=== PATIENT | female | born 1945 | race Caucasian/White ===

== ENCOUNTER 2017-09-12 13:16 | Emergency (ER) | payer MEDICARE, OTHER, SELFPAY ==
[2017-09-12 13:25] VITALS: BP 164/74; PULSE 72; RESP 18; TEMP 36.8; O2SAT 98; BMI 28.0
--- NOTE | 2017-09-12 13:27 | ED_ITS ---
HPI - Extremity Injury (Lower) <SHINE Mcintyre - Last Filed: 09/12/17 21:47> General Chief Complaint: Extremity Injury, Lower Stated Complaint: 'BROKE A BONE IN FOOT' Time Seen by Provider: 09/12/17 13:27 History of Present Illness HPI Narrative: 71-year-old female here for complaint of pain into her left foot and left knee status post ground level fall just prior to arrival. She reports that she stepped on a pine cone the rolled out from underneath her causing her to fall on to the left knee she reports pain into the lateral side of the left foot. She reports pain into the anterior portion of the left knee. She reports decreased ability to bear weight on the left foot. She denies any other injuries or concerns. Worse pain with motion of the left foot. Decreased pain if not moving or bearing weight MD complaint: foot injury Related Data Home Medications Medication Instructions Recorded Confirmed cholecalciferol (vitamin D3) 1,000 unit PO QDAY #0 08/26/12 09/12/17 [Vitamin D3] magnesium 200 mg PO DAILY #0 06/13/16 09/12/17 melatonin 1 mg PO BEDTIME #0 06/13/16 09/12/17 celecoxib [Celebrex] 200 mg PO [facility] [place] 06/17/17 09/12/17 coenzyme Q10 [Co Q-10] 100 mg PO DAILY #0 06/17/17 09/12/17 losartan 25 mg PO QPM 09/12/17 09/12/17 losartan 50 mg PO QAM 09/12/17 09/12/17 thyroid (pork) [Nature-Throid] 0.5 tab PO QPM 09/12/17 09/12/17 zolpidem [Ambien] 5 - 10 mg PO BEDTIME PRN 09/12/17 09/12/17 Previous Rx's Medication Instructions Recorded [Shingrix] 0.5 ml IM SEE INSTRUCTIONS #2 hemalatha 04/24/17 hydrocodone-homatropine 5 mg-1.5 5 ml PO Q6H PRN #175 ml 09/02/17 mg/5 mL syrup Allergies Allergy/AdvReac Type Severity Reaction Status Date / Time niacin [NIACIN] Allergy Intermediate VOMITTING Verified 09/12/17 13:34 lien Allergy Mild HIVES Verified 09/12/17 13:34 hydrocodone Allergy Unknown VOMITING Verified 09/12/17 13:34 Review of Systems <SHINE Mcintyre - Last Filed: 09/12/17 21:47> Constitutional Denies chills, Denies fever(s), Denies lethargy and Denies weakness Eyes Denies change in vision, Denies eye discharge, Denies irritation and Denies loss of vision ENT Ears, Nose, Mouth, and Throat: Denies change in voice, Denies neck pain and Denies sore throat Cardiovascular Denies chest pain, Denies irregular heart rhythm, Denies lightheadedness, Denies palpitations, Denies dyspnea, Denies dyspnea on exertion and Denies orthopnea Respiratory Denies cough, Denies dyspnea, Denies dyspnea on exertion and Denies wheezing Gastrointestinal Gastrointestinal: Denies abdominal pain, Denies change in bowel habits, Denies diarrhea, Denies nausea and Denies vomiting Genitourinary Denies hematuria, Denies flank pain, Denies urinary incontinence and Denies urinary urgency Musculoskeletal Denies neck pain Comments: Left foot and left knee pain Integumentary/Breasts Denies pruritus, Denies erythema, Denies rash and Denies wounds Neurologic Denies confusion, Denies loss of vision and Denies weakness Psychiatric Denies anxiety, Denies confusion, Denies depression, Denies homicidal ideation and Denies suicidal ideation Endocrine Denies palpitations Allergic/Immunologic Denies wheezing Exam <SHINE Mcintyre - Last Filed: 09/12/17 21:47> Initial Vital Signs Initial Vital Signs: Vital Signs Temperature 98.2 F 09/12/17 13:25 Pulse Rate 72 09/12/17 13:25 Respiratory Rate 18 09/12/17 13:25 Blood Pressure 164/74 H 09/12/17 13:25 Pulse Oximetry 98 09/12/17 13:25 Const General: cooperative and well developed Nutritional Appearance: well nourished Orientation: alert, awake, oriented x3 and not confused [facility] Mouth: oral mucosae normal and moist mucous membranes Eyes Eyelids: eyelids normal Conjunctivae: conjunctivae normal Sclera: sclerae normal Pupils: PERRL EOM: EOM intact bilaterally Resp Effort & Inspection: normal respiratory effort, able to speak in complete sentences, no respiratory distress and no use of accessory muscles Auscultation: clear to auscultation bilaterally, no rales, no rhonchi and no wheezes Cardio Rate: regular rate Rhythm: regular rhythm Heart Sounds: no click, no gallops, murmur systolic and no rubs Pulses: normal peripheral pulses Skin General: no rashes or lesions noted, No jaundice and No petechiae Extrem Other: Left foot with swelling into the lateral portion of the left foot. Distal sensation is intact. Distal range of motion is intact. Distal pulses are intact. No open lesions. Left knee with mild abrasion to the anterior portion of the knee. No signs of trauma. No ecchymosis. Negative anterior- posterior drawer sign <Charlie Nguyen DO - Last Filed: 09/13/17 07:15> Initial Vital Signs Initial Vital Signs: Vital Signs Temperature 98.2 F 09/12/17 13:25 Pulse Rate 72 09/12/17 13:25 Respiratory Rate 18 09/12/17 13:25 Blood Pressure 164/74 H 09/12/17 13:25 Pulse Oximetry 98 09/12/17 13:25 Course <SHINE Mcintyre - Last Filed: 09/12/17 21:47> Orders Ordered: Discontinued Medications Ibuprofen (Advil) 400 mg PO NOW ONE Stop: 09/12/17 14:10 Last Admin: 09/12/17 15:27 Dose: Vital Signs - 8 hr 09/12/17 15:20 Pulse Rate 71 Respiratory Rate 18 Blood Pressure 150/64 H Pulse Oximetry 99 <Charlie Nguyen DO - Last Filed: 09/13/17 07:15> Orders Ordered: Discontinued Medications Ibuprofen (Advil) 400 mg PO NOW ONE Stop: 09/12/17 14:10 Last Admin: 09/12/17 15:27 Dose: Vital Signs - 8 hr 09/12/17 15:20 Pulse Rate 71 Respiratory Rate 18 Blood Pressure 150/64 H Pulse Oximetry 99 MDM - Extremity Injury (Lower) <SHINE Mcintyre - Last Filed: 09/12/17 21:47> Imaging Data Left foot: Radiologist's impression: PROCEDURE: XR FOOT LT MIN 3V INDICATIONS: Ground level fall with pain to left knee and foot TECHNIQUE: 3 views of the foot were acquired. COMPARISON: None. FINDINGS: Bones: An acute, nondisplaced fracture is present through the base of the fifth metatarsal. Advanced degenerative joint disease at the first MTPJ. Calcification within the Achilles tendon just proximal to its insertion. Plantar bone spur posterior calcaneus. Soft tissues: No tibiotalar joint effusion. Achilles tendon appears normal. IMPRESSION: 1. Acute fracture base of the fifth metatarsal. 2. Advanced joint degeneration first metatarsal phalangeal joint with prominent hypertrophic changes. 3. Plantar spur os calcis. Dictated by: Colin Montemayor M.D. on 09/12/2017 at 14:14 Approved by: Colin Montemayor M.D. on 09/12/2017 at 14:16 Left knee : Radiologist's impression: PROCEDURE: XR KNEE LT 3V INDICATIONS: Ground level fall with pain to left foot and left knee TECHNIQUE: 3 views of the knee were acquired. COMPARISON: None. FINDINGS: Bones: No fractures or dislocations. No suspicious bony lesions. There are small marginal spurs over the posterior patella. Soft tissues: No joint effusion. No suspicious soft tissue calcifications. IMPRESSION: No fracture or joint effusion. Mild degenerative joint disease. Dictated by: Colin Montemayor M.D. on 09/12/2017 at 14:16 Approved by: Colin Montemayor M.D. on 09/12/2017 at 14:17 [facility] Narrative Medical decision making narrative: X-ray of the left knee was obtained and was negative for any acute findings. Ft x-ray shows nondisplaced fracture to the shaft of the 5th metatarsal. She is placed in a posterior splint for comfort and support. Crutches for nonweightbearing. [id number] Tylenol Motrin as needed for any discomfort. Ice and elevation help with swelling. She is referred Orthopedics. Patient call Orthopedics schedule follow-up appointment next week. For any worsening symptoms return to the emergency room. Discharge Plan Departure Patient Disposition: Home, Self-Care Clinical Impression: Foot fracture, left Discharge Date/Time: 09/12/17 15:00 Interventions: ED Discharge Assessment Last Done: 09/12/17 15:20 Instructions: DI for Foot Fracture Activity Restrictions/Additional Instructions: X-ray of the left knee was obtained and was negative for any acute findings. Foot x-ray shows fracture to the shaft of the 5th metatarsal. You have been placed in a posterior splint for comfort and support and crutches for nonweightbearing use as directed. [id number] Tylenol Motrin as needed for any discomfort. Ice and elevation help with swelling. You are referred to Orthopedics. Call Orthopedics to schedule follow-up appointment next week. For any worsening symptoms return to the emergency room. Prescriptions: No Action cholecalciferol (vitamin D3) [Vitamin D3] 2,000 UNIT capsule 1,000 unit PO QDAY Qty: 0 RF: 0 magnesium 200 MG tablet 200 mg PO DAILY Qty: 0 RF: 0 melatonin 1 MG tablet 1 mg PO BEDTIME Qty: 0 RF: 0 [Shingrix] 0.5 ml IM SEE INSTRUCTIONS Qty: 2 RF: 0 celecoxib [Celebrex] 200 MG capsule 200 mg PO [facility] Qty: 0 RF: 0 coenzyme Q10 [Co Q-10] 100 MG capsule 100 mg PO DAILY Qty: 0 RF: 0 hydrocodone-homatropine 5-1.5 mg/5 mL syrup 5 ml PO Q6H PRN (Reason: cough) Qty: 175 RF: 0 losartan 50 mg tablet 25 mg PO QPM RF: 0 thyroid (pork) [Nature-Throid] 65 mg Tablet 0.5 tab PO QPM RF: 0 losartan 50 mg tablet 50 mg PO QAM RF: 0 zolpidem [Ambien] 10 mg tablet 5 - 10 mg PO BEDTIME PRN (Reason: insomnia) RF: 0 Referrals: Heather Harp MD [Physician] - Pradeep Ivan MD [Primary Care Provider] - <Charlie Nguyen DO - Last Filed: 09/13/17 07:15> Cosign ED Attending Cindyature Attestation: I was available for consultation during this patient's emergency department encounter
--- NOTE | 2017-09-12 13:44 | DI.RAD.S_ITS ---
PROCEDURE: XR FOOT LT MIN 3V INDICATIONS: Ground level fall with pain to left knee and foot TECHNIQUE: 3 views of the foot were acquired. COMPARISON: None. FINDINGS: Bones: An acute, nondisplaced fracture is present through the base of the fifth metatarsal. Advanced degenerative joint disease at the first MTPJ. Calcification within the Achilles tendon just proximal to its insertion. Plantar bone spur posterior calcaneus. Soft tissues: No tibiotalar joint effusion. Achilles tendon appears normal. IMPRESSION: 1. Acute fracture base of the fifth metatarsal. 2. Advanced joint degeneration first metatarsal phalangeal joint with prominent hypertrophic changes. 3. Plantar spur os calcis. Dictated by: Colin Montemayor M.D. on 09/12/2017 at 14:14 Approved by: Colin Montemayor M.D. on 09/12/2017 at 14:16
--- NOTE | 2017-09-12 13:44 | DI.RAD.S_ITS ---
PROCEDURE: XR KNEE LT 3V INDICATIONS: Ground level fall with pain to left foot and left knee TECHNIQUE: 3 views of the knee were acquired. COMPARISON: None. FINDINGS: Bones: No fractures or dislocations. No suspicious bony lesions. There are small marginal spurs over the posterior patella. Soft tissues: No joint effusion. No suspicious soft tissue calcifications. IMPRESSION: No fracture or joint effusion. Mild degenerative joint disease. Dictated by: Colin Montemayor M.D. on 09/12/2017 at 14:16 Approved by: Colin Montemayor M.D. on 09/12/2017 at 14:17
[2017-09-12 15:20] VITALS: BP 150/64; PULSE 71; RESP 18; O2SAT 99
== END 2017-09-12 15:00 | disposition home or self-care (01) ==
PROVIDERS: Emergency Provider Nurse Practitioner Family; Family Provider Family Medicine; PCP Family Medicine
DX: S92.902A Unspecified fracture of left foot, initial encounter for closed fracture (principal); W01.0XXA Fall on same level from slipping, tripping and stumbling without subsequent striking against object, initial encounter
CPT/HCPCS: 73562; 73630; 99283

== ENCOUNTER → 2018-04-11 12:30 | Outpatient (CLI) | payer MEDICARE, OTHER, SELFPAY ==
[2018-04-11 14:21] LABS: Erythrocyte Sedimentation Rate 7 MM/HR (0-20)
[2018-04-11 15:39] LABS: C-Reactive Protein Quant < 0.5 mg/dL (<1.0)
== END ==
PROVIDERS: PCP Family Medicine; Visit Provider Family Medicine
DX: M25.40 Effusion, unspecified joint (principal)
CPT/HCPCS: 36415; 85651; 86140

== ENCOUNTER → 2018-04-11 12:44 | Outpatient (CLI) | payer MEDICARE, OTHER, SELFPAY ==
--- NOTE | 2018-04-11 12:47 | DI.RAD.S_ITS ---
PROCEDURE: XR HAND LT MIN 3V INDICATIONS: painful swelling of left 5th metacarpal joint area TECHNIQUE: 3 views of the hand(s) acquired. COMPARISON: [facility], CR, XR HAND RT MIN 3V, 04/11/2018, 12:51. FINDINGS: Bones: No fractures or dislocations. There is diffuse decreased bone mineralization. Marginal lucencies present at the PIP joint of the middle finger, fifth MCP joint and at the ulnar styloid or there is blunted appearance suggestive erosive process. First CMC and triscaphe joint degeneration Carpal bones are normally aligned. No suspicious bony lesions. Soft tissues: No suspicious soft tissue calcifications. IMPRESSION: Lucent lesions at the PIP joint of the middle finger, fifth MCP joint and ulnar styloid suggestive of erosive arthropathy. Please correlate clinically and with laboratory data. Diffuse osteopenia. Background diffuse left hand osteoarthritis. Dictated by: Aidan Lamar M.D. on 04/11/2018 at 13:38 Approved by: Aidan Lamar M.D. on 04/11/2018 at 13:42
--- NOTE | 2018-04-11 12:47 | DI.RAD.S_ITS ---
PROCEDURE: XR HAND RT MIN 3V INDICATIONS: painful swelling of right 5th metacarpal joint area TECHNIQUE: 3 views of the hand(s) acquired. COMPARISON: [facility], CR, XR HAND LT MIN 3V, 04/11/2018, 12:52. FINDINGS: Bones: No fractures or dislocations. Carpal bones are normally aligned. No suspicious bony lesions. Diffuse osteopenia. Diffuse interphalangeal and metacarpal joint degeneration. Projecting in the tip the ulnar styloid, there is sub-5 mm lucency raising the possibility of early erosion First CMC and triscaphe joint degeneration Soft tissues: No suspicious soft tissue calcifications. IMPRESSION: Sub-5 mm lucency projecting in the ulnar styloid raising the possibility of erosion although technically nonspecific. If clinically warranted, dedicated hand MRI with and without contrast could be performed. Diffuse right hand osteoarthritis. Dictated by: Aidan Lamar M.D. on 04/11/2018 at 13:33 Approved by: Aidan Lamar M.D. on 04/11/2018 at 13:38
== END ==
PROVIDERS: Family Provider Family Medicine; PCP Family Medicine; Visit Provider Family Medicine
DX: M25.441 Effusion, right hand (principal); M25.442 Effusion, left hand; M19.041 Primary osteoarthritis, right hand; M19.042 Primary osteoarthritis, left hand; M85.842 Other specified disorders of bone density and structure, left hand
CPT/HCPCS: 36415; 73130; 85651; 86140

== ENCOUNTER → 2018-06-03 08:46 | Outpatient (CLI) | payer MEDICARE, OTHER, SELFPAY ==
[2018-06-03 09:42] LABS: Add Manual Diff / Slide Review NO; Basophils Absolute Auto 0 /uL (0-100); Basophils Percent Auto 0.8 % (0-2); Eosinophils Absolute Auto 100 /uL (0-450); Eosinophils Percent Auto 1.5 % (2-4); Hematocrit 42.5 % (36-46); Hemoglobin 14.2 g/dL (12.0-16.0); Lymphocytes Absolute Auto 1700 /uL (1100-4500); Mean Corpuscular HGB Conc 33.4 % (30-36); Mean Corpuscular Hemoglobin 30.2 PG (26-34); Mean Corpuscular Volume 90.3 fL (80-100); Monocytes Absolute Auto 600 /uL (0-900); Monocytes Percent Auto 9.5 % (3-14); Neutrophils Absolute Auto 3700 /uL (1500-7000); Neutrophils Percent Auto 60.2 % (50-75); Platelet Count 263 X10^3/uL (150-400); Red Blood Cell Count 4.71 X10^6/uL (4.0-5.2); White Blood Cell Count 6.2 X10^3/uL (4.5-11.0)
[2018-06-03 10:07] LABS: Alanine Aminotransferase 37 IU/L (9-52); Albumin 4.2 g/dL (3.5-5.0); Albumin Globulin Ratio 1.5 (1.0-2.8); Alkaline Phosphatase 68 U/L (38-126); Aspartate Aminotransferase 23 IU/L (14-36); BUN Creatinine Ratio 21.1 (6-22); Bilirubin Total 0.4 mg/dL (0.2-1.3); Blood Urea Nitrogen 19 mg/dL (7-17); Calcium 9.3 mg/dL (8.4-10.2); Carbon Dioxide 28 mmol/L (22-32); Chloride 104 mmol/L (98-107); Cholesterol 299 mg/dL (140-199); Estimated Glomerular Filt Rate > 60.0 mL/min (>60); Globulin 2.8 g/dL (1.7-4.1); Glucose 93 mg/dL (80-110); HDL Cholesterol 48 mg/dL (40-60); HEMOLYSIS < 15 (0-50); LDL Cholesterol Calculated 210 mg/dL (<100); Potassium 4.7 mmol/L (3.4-5.1); Sodium 138 mmol/L (137-145); Triglycerides 203 mg/dL (35-150)
[2018-06-03 10:34] LABS: TSH w/ Reflex to FT4 1.84 uIU/mL (0.47-4.68)
== END ==
PROVIDERS: Family Provider Family Medicine; PCP Family Medicine; Visit Provider Family Medicine
DX: E03.9 Hypothyroidism, unspecified (principal); E78.5 Hyperlipidemia, unspecified; I10 Essential (primary) hypertension
CPT/HCPCS: 36415; 80053; 80061; 84443; 85025

== ENCOUNTER → 2018-10-24 10:43 | Outpatient (CLI) | payer MEDICARE, OTHER, SELFPAY ==
--- NOTE | 2018-10-24 | DI.MRI.S_ITS ---
PROCEDURE: MR KNEE RT W CON INDICATIONS: Unspecified internal derangement of right knee TECHNIQUE: After the administration of 50 mL of dilute intra-articular Gadolinium contrast, sagittal T1 spin echo with fat saturation and PD fast spin echo with fat saturation, coronal T1 spin echo with and without fat saturation, coronal T2 fast spin echo with fat saturation, axial PD fast spin echo with fat saturation through the knee. COMPARISON: [facility], MR, KNEE WITHOUT CONTRAST, 10/05/2016, 12:42. [facility], MR, KNEE WITHOUT CONTRAST, 10/05/2016, 12:17. FINDINGS: Image quality: Excellent. Menisci: There is a large complex tear involving the posterior horn of the medial meniscus extending to the intra-articular surface. The lateral meniscus demonstrates normal morphology and internal signal. The meniscal root ligaments appear intact. Cruciate ligaments: The anterior and posterior cruciate ligaments appear intact. Medial structures: The medial collateral ligament appears intact. The semimembranosus tendon insertionsand meniscocapsular junction appear intact. Visualized portions of the pes anserinus tendons appear normal. No abnormal bursal fluid. Lateral structures: The lateral collateral ligament and the biceps femoris tendon appear intact. The popliteus tendon appears normal; the popliteofibular ligament appears intact. Iliotibial band appears normal. Anterior structures: The quadriceps and patellar tendons appear intact. Patellar alignment is normal. No femoral trochlear dysplasia or ventral trochlear prominence. No edema in the infrapatellar fat pad. Bone and cartilage: No bone fractures. There is mild pulmonary edema in the medial femoral condyle and medial tibial plateau. There is tricompartmental cartilage thinning, most pronounced in the the medial femorotibial compartment with large articular cartilage defect in the weightbearing portion. Joint space: No Jenkins's cyst. Normal appearing synovial plicae are incidentally noted. No intra-articular bodies. IMPRESSION: 1. Large complex tear of the posterior horn the medial meniscus. 2. Tricompartment knee joint degeneration, most severe in the medial femorotibial compartment with cartilage denuded surface weightbearing portion. Dictated by: Kush Steinberg M.D. on 10/24/2018 at 12:06 Approved by: Kush Steinberg M.D. on 10/24/2018 at 12:34
--- NOTE | 2018-10-24 | DI.RAD.S_ITS ---
PROCEDURE: FL KNEE INJECTION MR/CT RT INDICATIONS: Unspecified internal derangement of right knee TECHNIQUE: The indications, alternatives, benefits, risks, and complications of the procedure were explained to the patient. Written informed consent was obtained and placed in the chart. The knee was examined fluoroscopically, and a site chosen for knee joint injection. The skin was prepped and draped in a sterile fashion, and 1% Lidocaine infiltrated from the skin down to the articular surface. A hypodermic needle was then introduced into the joint and iodinated contrast media was instilled to confirm the intra-articular needle tip placement. This was followed by approximately 50 mL dilute solution of a gadolinium containing MR contrast agent. The needle was removed and a bandage was applied. An Mike wrap was then applied around the knee joint to keep the contrast from collecting in the suprapatellar recess. The patient experienced no complications throughout the procedure and left the fluoroscopic suite in no apparent distress. FINDINGS: Single fluoroscopic spot image demonstrates intra-articular location to injected iodinated contrast. IMPRESSION: Successful fluoroscopically guided administration of dilute Gadolinium solution into the knee joint for MR arthrogram. Dictated by: Aidan Lamar M.D. on 10/24/2018 at 14:02 Approved by: Aidan Lamar M.D. on 10/24/2018 at 14:03
== END ==
PROVIDERS: PCP Family Medicine; Visit Provider Orthopaedic Surgery
DX: S83.231A Complex tear of medial meniscus, current injury, right knee, initial encounter (principal); M17.11 Unilateral primary osteoarthritis, right knee
CPT/HCPCS: 27369; 73722; 77002